=== PATIENT | female | born 1985 | race Caucasian/White ===

== ENCOUNTER 2023-12-31 09:06 | Outpatient (AMB) | payer OTHER, SELFPAY ==
[2023-12-31 09:08] VITALS: BP 108/76; PULSE 106; RESP 14; TEMP 36.6; O2SAT 98; BMI 47.7
--- NOTE | 2023-12-31 09:08 | MHC.PC.OV ---
Vital Signs 12/31/23 09:08 12/31/23 09:57 Height 5 ft 9 in Weight 323 lb 6 oz BMI 47.7 BP 108/76 Blood Pressure Location Lt brachial Position Sitting Respiration 14 Pulse 106 H 96 Pulse Source Pulse Oximeter Auscultation Temp 97.9 F Temp Source Temporal Artery Scan Pulse Oximetry (%) 98 Oxygen Delivery Method Room Air Intake Visit Reasons: SPECIMEN TRANSPORTER/Asthma Intake Note: Patient needs all 3 medications refilled. 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 Accompanied by: Self / Same As Patient Allergies No Known Allergies Allergy (Verified 12/31/23 09:31) Medication List - Last Reconciled 12/31/23 by Tyshawn Wilson CNP bupropion HCl XL 150 mg PO QAM fluticasone propionate 110 mcg/actuation 2 puffs inhalation BID levalbuterol tartrate 45 mcg/actuation 1 puff inhalation Q4-6H PRN Tobacco use date assessed: 12/31/23 Dental Screening Dental Screen Date: 12/31/23 Did you have a dental visit in the last 12 months?: No Did you have a dental problem in the last 6 months where you did not have access to dental care?: No Was dental information given to patient?: Yes HPI HPI Comments History of Present Illness Details New patient Relocated from [place] to [facility] in June 2023 Prior PCP: Apolonia Ellison, ,?[place],. She notes that she was seen once Last office visit/CPE/labs: Almost 2 years ago Acute issue(s): Asthma -She is on fluticason propionate 110 mcg 2 puffs BID and levalbuterol 45 mcg 1 puff Q4-6H PRN Anxiety and Depression -She is on Bupropion HCL XL 150 mg daily She notes that she is followed by a therapist through [facility] weekly. She has had 3 sessions so far PMHx: Asthma, anxiety, depression, morbid obesity SurgHx: Tooth extraction, I and D left groin FHx: Mom: Substance abuse, prediabetes. Dad: Thyroid disorder. MGM: Diabetes SocHx: Nonsmoker. Drinks alcohol occasionally. No recreational drugs. Last pap smear test was in March 2022: Normal She notes that she walks for approx. 15-30 minutes daily She is not on a particular diet and not always makes healthy dietary choice She is u-to-date on the current flu vaccine She has not received dental care in the past 12 months [facility] Medical History (Updated 12/31/23 @ 12:31 by Tyshawn Wilson CNP) Depression Anxiety Asthma Surgical History (Updated 12/31/23 @ 09:21 by ROBINSON Goel) [place] teeth extracted History of incision and drainage Family History (Updated 12/31/23 @ 09:22 by ROBINSON Goel) Mother Prediabetes Maternal Grandmother Diabetes Father Thyroid disorder Other Substance abuse Social History Housing: Apartment Patient Tobacco Use Status: Never used Tobacco e-Cigarette/Vaping Use: Never Used service: No Current occupational status: employed Current occupation: [employer] Cognitive needs: No Hearing needs: No Vision needs: No Questionnaire PHQ-9 Over the last 2 weeks, how often have you been bothered by any of the following problems? 1. Little interest or pleasure in doing things: not at all 2. Feeling down, depressed, or hopeless: not at all 3. Trouble falling or staying asleep, or sleeping too much: not at all 4. Feeling tired or having little energy: not at all 5. Poor appetite or overeating: not at all 6. Feeling bad about yourself - or that you are a failure or have let yourself or your family down: not at all 7. Trouble concentrating on things, such as reading the newspaper or watching television: not at all 8. Moving or speaking so slowly that other people could have noticed. Or the opposite - being so fidgety or restless that you have been moving around a lot more than usual: not at all 9. Thoughts that you would be better off or of hurting yourself in some way: not at all Total score: 0 Depression Screening Interpretation: Negative Depression Screening Done: Yes 43626 - PHQ-9 Billing: Yes Source: Developed by Drs. Justin James, Katlin Cowart, Flo Coy and colleagues, with an educational sophia from [employer]. Thrive Questionnaire Date Thrive assessed: 12/31/23 I am a: Patient What is your living situation today?: I have a steady place to live Within the past 12 months, did the food you bought not last and you didn't have the money to get more?: Never true Within the past 12 months, did you worry whether your food would run out before you got money to buy more?: Never true Do you have trouble paying for medicines?: No Do you have trouble getting transportation to medical appointments?: No Do you have trouble paying your heating and electricity bill?: No Do you have trouble taking care of your child, family member or friend?: No Do you have trouble with day-to-day activities such as bathing, preparing meals, shopping, managing finances, etc.?: No Are you currently unemployed and looking for a job?: No Are you interested in more education?: No Please select the resources that you would like help with: None Currently or been in a relationship where the following occur: no concerns reported THRIVE Score: 0 AUDIT C Alcohol Use Questionnaire (AUDIT-C) 1. How often do you have a drink containing alcohol?: 2-4 times a month 2. How many drinks containing alcohol do you have on a typical day when you are drinking?: 1 or 2 3. How often do you have six or more drinks on one occasion?: Never Total Score: 2 NADEEN-7 AMB Questionnaire NADEEN-7 Date NADEEN - 7 assessed: 12/31/23 Feeling nervous, anxious, or on edge: 1 = Several days Not being able to stop or control worryin = More than half the days Worrying too much about different things: 1 = Several days Trouble relaxin = Not at all Being so restless that it is hard to sit still: 0 = Not at all Becoming easily annoyed or irritable: 0 = Not at all Feeling afraid as if something awful might happen: 0 = Not at all Total NADEEN-7 score (0-4 normal; 5-9 mild; 10-14 moderate; 15-21 severe): 4 Source: Developed by Drs. Justin James, Katlin Cowart, Flo Coy and colleagues, with an educational sophia from [employer]. NADEEN-7 Assessment Billing NADEEN-7 Assessment Tool: NADEEN-7 Assessment 79565 ACT Questionnaire In the past 4 weeks, how much of the time did your asthma keep you from getting as much done at work, school or at home?: A little of the time During the past 4 weeks, how often have you had shortness of breath?: 3-6 times a week During the past 4 weeks, how often did your asthma symptoms wake you up at night or earlier than usual in the morning?: Not at all During the past 4 weeks, how often have you had to use your rescue inhaler or nebulizer medication?: Once a week or less How would you rate your asthma control during the past 4 weeks?: Somewhat controlled ACT Interpretation: Positive Score: 19 Review of Systems Const Details: Denies chills, Denies fatigue, Denies fever(s), Denies headache(s) and Denies weakness HEENT Denies change in vision, Denies dizziness, Denies headache(s), Denies hearing loss, Denies nasal congestion, Denies sinus pain, Denies sinus pressure and Denies sore throat Card Denies chest pain, Denies lightheadedness, Denies dyspnea and Denies other (palpitations) Resp Denies cough, Denies dyspnea and Denies wheezing GI Denies abdominal pain, Denies melena, Denies hematochezia, Denies change in bowel habits, Denies dyspepsia and Denies nausea Denies hematuria and Denies dysuria Musc Denies abnormal gait, Denies myalgias, Denies arthralgias, Denies numbness and Denies tingling Skin/Breast Denies rash, Denies unusual bruising and Denies wounds Neuro Denies abnormal gait, Denies dizziness, Denies headache(s), Denies memory loss, Denies numbness, Denies Sensory deficit (Neuro), Denies tingling and Denies weakness Psych Denies anxiety, Denies depression and Denies memory loss Endo Denies cold intolerance, Denies fatigue, Denies heat intolerance, Denies polydipsia and Denies polyuria Librado/Lymph Denies easy bleeding and Denies easy bruising Aller/Immun Denies wheezing Physical exam (Primary Care) Vital Signs: Last Vital Signs Temp 97.9 F 12/31/23 09:08 Pulse 96 12/31/23 09:57 Resp 14 12/31/23 09:08 BP 108/76 12/31/23 09:08 Pulse Ox 98 12/31/23 09:08 Oxygen Delivery Method Room Air 12/31/23 09:08 BMI result Body Mass Index 47.7 Tobacco/Smoking Status: Tobacco use Status Tobacco use date assessed 12/31/23 12/31/23 09:26 Patient Tobacco Use Status Never used Tobacco 12/31/23 09:26 e-Cigarette/Vaping Use Never Used 12/31/23 09:26 PHQ-9: PHQ-9 Score PHQ-9: Total score 0 12/31/23 16:14 Depression Screening Interpretation: Negative Thrive Assessment: Date of Thrive Assessment Date Thrive assessed 12/31/23 12/31/23 09:26 Currently or been in a relationship where the following occur: no concerns reported Const Other: General: no acute distress, well developed, alert and awake Nutritional Appearance: well nourished Orientation/consciousness: patient oriented x3 HENMT Head: Yes normocephalic and Yes atraumatic Ears: hearing grossly normal bilaterally and TM's normal bilaterally General nose exam: Normal external nose present and Normal nares present Mouth: Normal oral and palatal mucosa present and moist mucous membranes Teeth and gingiva: dentition normal Throat: Yes oropharynx normal Eyes Pupils: Equal, round and reactive pupils present and Pupil accommodation reflex normal EOM: EOMs intact bilaterally Neck Neck: Yes normal visual inspection, Yes no lymphadenopathy and Yes trachea midline Thyroid: Thyroid normal Carotids: no bruits Lymphatic: no lymphadenopathy noted Chest Chest palpation & inspection: normal inspection of the chest Resp Effort & Inspection: normal respiratory effort Auscultation: clear to auscultation bilaterally Cardio Rate: regular rate Rhythm: regular rhythm Heart sounds: S1 normal heart sound present, S2 normal heart sound present, no gallops, no murmurs and no rubs Bruits: no abdominal aortic bruits and no carotid bruits GI Palpation (GI): No Abdominal aortic bruit present, Soft to palpation, nontender, No hepatosplenomegaly present and No Rebound tenderness present Auscultation: normal bowel sounds General: Yes no CVA tenderness Back/Spine/Pelvis Back: no CVA tenderness Cervical Spine: cervical ROM normal and No Cervical spine tenderness Thoracic/Lumbar Spine: thoraco-lumbar ROM normal, No pain with thoraco-lumbar ROM, No thoracic spinal tenderness and No lumbar spinal tenderness Skin General: warm and dry. Normal skin color. Normal skin turgor Lesions: no lesions Rashes: no rashes Trauma: no lacerations or abrasions Wounds: no wounds Nails: normal Neuro General: patient oriented x3, gait normal and CN's II-XI intact bilaterally Cranial nerves: Yes Equal, round and reactive pupils present Cognition (Neuro): normal cognition Gait exam (Neuro): Normal gait present Motor exam (neuro): 5/5 motor strength present throughout Sensory Exam: No Sensory deficit (Neuro) Deep tendon reflexes (DTR's): Right patellar reflex intensity grade: 2+ and Left patellar reflex intensity grade: 2+ Extrem General: Yes normal to inspection, No edema and No calf tenderness Psych Appearance: grossly normal Affect: normal affect Attitude: cooperative Thought process: Normal thought process present Assessment and Plan Assessment & Plan (1) Normal physical examination, routine: Code(s): Z00.00 - Encounter for general adult medical examination without abnormal findings Plan: No significant physical restrictions or limitations noted Healthy diet and routine exercise encouraged Advised to schedule an appointment with a dentist for routine dental care Follow-up in 1 month for anxiety, depression, and lab reviews Return sooner with symptoms or concerns Verbalized understanding and agreed with treatment plan (2) Asthma: Code(s): J45.909 - Unspecified asthma, uncomplicated Plan: ACT score is 19, partially controlled asthma Continue current treatment regimen Follow-up with symptoms or concerns Verbalized understanding and agreed with the plan (3) Depression: Code(s): F32.A - Depression, unspecified Plan: Reports controlled anxiety and depression symptoms on current treatment regimen Continue current treatment regimen Routine exercise encouraged Continue follow-up with therapist as planned Follow-up in 1 month or return sooner with symptoms or concerns Verbalized understanding and agreed with the treatment plan (4) Anxiety: Code(s): F41.9 - Anxiety disorder, unspecified Plan: As above (5) Morbid obesity with BMI of 45.0-49.9, adult: Code(s): E66.01 - Morbid (severe) obesity due to excess calories; Z68.42 - Body mass index [BMI] 45.0-49.9, adult Plan: She currently weighs 323 lb, BMI is 47.7 She works daily for 15-30 minutes. 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 Advised to fast for at least 10 hours before getting labs drawn. May drink water Verbalized understanding and agreed with treatment plan. Orders: Orders Comprehensive [place]. Panel Fast 12/31/23 Z00.00 - Encounter for general adult medical examination without abnormal findings TSH reflex Free T4 12/31/23 Z00. - Encounter for general adult medical examination without abnormal findings UA CC w/rflx Micro + Cult 12/31/23 Z00. - Encounter for general adult medical examination without abnormal findings Complete Blood Count Auto Diff 12/31/23 Z00. - Encounter for general adult medical examination without abnormal findings Lipid Panel 12/31/23 Z00.00 - Encounter for general adult medical examination without abnormal findings Referrals [facility] Referral Z01.419 - Encounter for gynecological examination (general) (routine) without abnormal findings Medications: New bupropion HCl XL 150 mg PO QAM 90 tabs 1RF 90 days fluticasone propionate 110 mcg/actuation 2 puffs inhalation BID 12 grams 3RF 30 days levalbuterol tartrate 45 mcg/actuation 1 puff inhalation Q4-6H PRN 15 grams 3RF shortness of breath or wheezing 30 days Coding Level of Care Code New Pt Level 3 (49319) Est Pt Prev Care 40-64y(23498) Diagnoses Normal physical examination, routine Z00.00 Asthma J45.909 Depression F32.A Anxiety F41.9 Morbid obesity with BMI of 45.0-49.9, adult E66.01; Z68.42 Well woman exam Z01.419 Laboratory tests ordered as part of a complete physical exam (CPE) Z00.00 Additional Codes NADEEN-7 Assessment Billing - NADEEN-7 Assessment Tool: NADEEN-7 Assessment 08346 ([id number])
[2023-12-31 09:57] VITALS: PULSE 96
== END 2023-12-31 10:12 | disposition home or self-care (01) ==
PROVIDERS: Visit Provider Nurse Practitioner Family
DX: Z00.00 Encounter for general adult medical examination without abnormal findings (principal); E66.01 Morbid (severe) obesity due to excess calories; Z68.42 Body mass index [BMI] 45.0-49.9, adult; J45.909 Unspecified asthma, uncomplicated; F32.A Depression, unspecified; F41.9 Anxiety disorder, unspecified
CPT/HCPCS: 99203; 99385

== ENCOUNTER 2023-12-31 11:02 | Outpatient (REF) | payer OTHER, SELFPAY ==
[2023-12-31 14:07] LABS: Appearance Urine Clear; Color Urine Yellow; Glucose Urine UA Negative (Negative); Leukocyte Esterase Urine Negative (Negative); Nitrite Urine Negative (Negative); Specific Gravity - Urine <= 1.005 (1.005-1.025); UMIC TRIGGER UACC YES; Urine Blood Trace (Negative); Urine Ketones Negative (Negative); Urine Protein Negative (Neg-Trace)
[2023-12-31 14:14] LABS: Bacteria Urine Trace (None Seen); Hyaline Casts Urine 0-2 /LPF (0-2); RBC Urine 0-2 /HPF (0-2); WBC Urine 0-5 /HPF (0-5)
== END 2023-12-31 11:03 | disposition home or self-care (01) ==
LOC: HO.LAB 11:02
PROVIDERS: Visit Provider Nurse Practitioner Family
DX: Z00.00 Encounter for general adult medical examination without abnormal findings (principal)
CPT/HCPCS: 81001; 81003